=== PATIENT | male | born 1940 | race Hispanic/Latino ===

== ENCOUNTER 2018-07-11 17:46 | Emergency (ER) | payer OTHER, BC ==
[2018-07-11] MEDS ORDERED: TRAMADOL HCL 50 MG TAB ONE (19:13)
--- NOTE | 2018-07-11 19:47 | RAD REPORT ---
EXAM DESCRIPTION: RAD - Ribs Right - 07/11/2018 7:32 pm CLINICAL HISTORY: PAIN Right rib pain COMPARISON: No comparisons FINDINGS: Minimally displaced fracture of the posterior right seventh rib is noted. No additional ri b fracture seen. No underlying pneumothorax.
--- NOTE | 2018-07-11 19:47 | RAD REPORT ---
EXAM DESCRIPTION: RAD - Chest Single View - 07/11/2018 7:41 pm CLINICAL HISTORY: PAIN Chest pain. COMPARISON: No comparisons FINDINGS: Portable technique limits examination quality. The lungs are grossly clear. The heart is normal in size. Minimally displaced right lateral seventh r ib fracture.
--- NOTE | 2018-07-11 20:06 | ER ---
Nurse's Notes [facility] Name: Hayes Bran Age: 78 yrs Sex: Male : 1940 Arrival Date: 07/11/2018 Time: 17:48 Bed 24 Private MD: Jeanne Greenberg R Diagnosis: Fracture of one rib, right side Presentation: 07/11 18:13 Presenting complaint: Patient states: pt fell while in the shower, c/o right sided pain tl3 with movement, no bruising noted. Transition of care: patient was not received from another setting of care. Onset of symptoms was July 11, 2018. Risk Assessment: Do you want to hurt yourself or someone else? Patient reports no desire to harm self or others. Initial Sepsis Screen: Does the patient meet any 2 criteria? No. Patient's initial sepsis screen is negative. Does the patient have a suspected source of infection? No. Patient's initial sepsis screen is negative. Care prior to arrival: None. 18:13 Method Of Arrival: Ambulatory tl3 18:13 Acuity: STEFANIE 4 tl3 Triage Assessment: 18:15 General: Appears uncomfortable, slender, well groomed, well developed, well nourished, tl3 Behavior is calm, cooperative, appropriate for age. Pain: Complains of pain in right side. EENT: No signs and/or symptoms were reported regarding the EENT system. Neuro: Level of Consciousness is awake, alert, obeys commands, Oriented to person, place, time, situation, Appropriate for age. Cardiovascular: Patient's skin is warm and dry. Respiratory: Airway is patent Respiratory effort is even, unlabored, Respiratory pattern is regular, symmetrical. GI: No signs and/or symptoms were reported involving the gastrointestinal system. : No signs and/or symptoms were reported regarding the genitourinary system. Derm: No signs and/or symptoms reported regarding the dermatologic system. Musculoskeletal: Tenderness present in right side, back. Historical: - Home Meds: 18:15 None [Active]; tl3 - PMHx: 18:15 Cancer; tl3 - PSHx: 18:15 Appendectomy; abdominal surgery for colorectal cancer; tl3 - Immunization history:: Adult Immunizations up to date. - Social history:: Smoking status: unknown. - Ebola Screening: : No symptoms or risks identified at this time. Screenin:18 Abuse screen: Denies threats or abuse. Nutritional screening: No deficits noted. tl3 Tuberculosis screening: No symptoms or risk factors identified. Fall Risk Fall in past 12 months (25 points). Assessment: 18:18 Reassessment: No changes from previously documented assessment. tl3 19:29 Reassessment: No changes from previously documented assessment. Patient and/or family tl3 updated on plan of care and expected duration. Pain level reassessed. Patient is alert, oriented x 3, equal unlabored respirations, skin warm/dry/pink. no needs at this time, awaiting x-ray results. 20:20 Reassessment: Patient appears in no apparent distress at this time. No changes from tl3 previously documented assessment. Patient and/or family updated on plan of care and expected duration. Pain level reassessed. Patient is alert, oriented x 3, equal unlabored respirations, skin warm/dry/pink. pt being discharged home. Vital Signs: 18:15 BP 133 / 82; Pulse 75; Resp 18; Pulse Ox 97% on R/A; tl3 19:29 BP 126 / 75; Pulse 71; Resp 18; Pulse Ox 100% on R/A; tl3 20:20 BP 126 / 75; Pulse 71; Resp 18; Pulse Ox 100% on R/A; tl3 ED Course: 17:48 Patient arrived in ED. rg4 17:48 Jeanne Greenberg MD is Private Physician. rg4 18:07 Tolu Gamez NP is PHCP. pm1 18:07 Kaveh Bryant MD is Attending Physician. pm1 18:12 Meche Saha, FIORELLA is Primary Nurse. tl3 18:14 Triage completed. tl3 18:15 Arm band placed on right wrist. tl3 18:18 No provider procedures requiring assistance completed. Patient did not have IV access tl3 during this emergency room visit. 19:25 Chest Single View XRAY In Process Unspecified. EDMS 19:25 Ribs Right XRAY In Process Unspecified. EDMS 20:20 Patient has correct armband on for positive identification. Bed in low position. Call tl3 light in reach. Side rails up X 1. Pulse ox on. NIBP on. Administered Medications: 18:51 Drug: traMADol 50 mg Route: PO; tl3 19:28 Follow up: Response: No adverse reaction; Pain is decreased tl3 Outcome: 20:05 Discharge ordered by . pm1 20:20 Discharged to home via wheelchair, assisted pt to car with family member tl3 20:20 Condition: stable 20:20 Discharge instructions given to patient, family, Instructed on discharge instructions, follow up and referral plans. medication usage, Demonstrated understanding of instructions, follow-up care, medications, Prescriptions given X 2. 20:46 Patient left the ED. tl3 Signatures: Dispatcher [employer] EDMS Tolu Gamez NP SAND SIFTER pm1 Berenice Vega rg4 Meche Saha, RN RN tl3
--- NOTE | 2018-07-11 20:06 | EDPHYS ---
Physician Documentation [facility] Name: Hayes Bran Age: 78 yrs Sex: Male : 1940 Arrival Date: 07/11/2018 Time: 17:48 Bed 24 Private MD: Jeanne Greenberg R ED Physician Kaveh Bryant HPI: 07/11 18:30 This 78 yrs old Male presents to ER via Ambulatory with complaints of Fall pm1 Injury. 18:30 Details of fall: The patient fell from an upright position, while standing. Onset: The pm1 symptoms/episode began/occurred today. Associated injuries: The patient sustained right lateral lower anterior chest. Severity of symptoms: in the emergency department the symptoms are unchanged. The patient has not experienced similar symptoms in the past. The patient has not recently seen a physician. Patient was standing in the shower and he fell on the right side. Hit the right side of his rib cage on the edge of the bath tub. No head injury, headache, or neck pain. No LOC. No shortness of breath. Historical: - Home Meds: 18:15 None [Active]; tl3 - PMHx: 18:15 Cancer; tl3 - PSHx: 18:15 Appendectomy; abdominal surgery for colorectal cancer; tl3 - Immunization history:: Adult Immunizations up to date. - Social history:: Smoking status: unknown. - Ebola Screening: : No symptoms or risks identified at this time. ROS: 18:30 Constitutional: Negative for fever, chills, and weight loss, Eyes: Negative for injury, pm1 pain, redness, and discharge, ENT: Negative for injury, pain, and discharge, Neck: Negative for injury, pain, and swelling, Cardiovascular: Negative for chest pain, palpitations, and edema, Respiratory: Negative for shortness of breath, cough, wheezing, and pleuritic chest pain, Abdomen/GI: Negative for abdominal pain, nausea, vomiting, diarrhea, and constipation, Back: Negative for injury and pain, : Negative for injury, bleeding, discharge, and swelling, MS/Extremity: Negative for injury and deformity, Skin: Negative for injury, rash, and discoloration, Neuro: Negative for headache, weakness, numbness, tingling, and seizure. Exam: 18:30 Constitutional: This is a well developed, well nourished patient who is awake, alert, pm1 and in no acute distress. Head/Face: Normocephalic, atraumatic. Eyes: Pupils equal round and reactive to light, extra-ocular motions intact. Lids and lashes normal. Conjunctiva and sclera are non-icteric and not injected. Cornea within normal limits. Periorbital areas with no swelling, redness, or edema. ENT: Nares patent. No nasal discharge, no septal abnormalities noted. Tympanic membranes are normal and external auditory canals are clear. Oropharynx with no redness, swelling, or masses, exudates, or evidence of obstruction, uvula midline. Mucous membranes moist. Neck: Trachea midline, no thyromegaly or masses palpated, and no cervical lymphadenopathy. Supple, full range of motion without nuchal rigidity, or vertebral point tenderness. No Meningismus. 18:30 Cardiovascular: Regular rate and rhythm with a normal S1 and S2. No gallops, murmurs, or rubs. Normal PMI, no JVD. No pulse deficits. Respiratory: Lungs have equal breath sounds bilaterally, clear to auscultation and percussion. No rales, rhonchi or wheezes noted. No increased work of breathing, no retractions or nasal flaring. Abdomen/GI: Soft, non-tender, with normal bowel sounds. No distension or tympany. No guarding or rebound. No evidence of tenderness throughout. Back: No spinal tenderness. No costovertebral tenderness. Full range of motion. Skin: Warm, dry with normal turgor. Normal color with no rashes, no lesions, and no evidence of cellulitis. MS/ Extremity: Pulses equal, no cyanosis. Neurovascular intact. Full, normal range of motion. 18:30 Chest/axilla: Inspection: normal, Palpation: crepitus, is not appreciated, tenderness, that totally reproduces the patient's complaints, focal point to right lateral lower rib cage. 18:30 Neuro: Orientation: is normal, Motor: is normal, moves all fours, Sensation: is normal, no obvious gross deficits. Vital Signs: 18:15 BP 133 / 82; Pulse 75; Resp 18; Pulse Ox 97% on R/A; tl3 19:29 BP 126 / 75; Pulse 71; Resp 18; Pulse Ox 100% on R/A; tl3 20:20 BP 126 / 75; Pulse 71; Resp 18; Pulse Ox 100% on R/A; tl3 MDM: 18:18 Patient medically screened. pm1 20:04 Data reviewed: vital signs. Data interpreted: Pulse oximetry: on room air is 100 %. pm1 Interpretation: normal. Counseling: I had a detailed discussion with the patient and/or guardian regarding: the historical points, exam findings, and any diagnostic results supporting the discharge/admit diagnosis, radiology results, the need for outpatient follow up, to return to the emergency department if symptoms worsen or persist or if there are any questions or concerns that arise at home. 07/11 18:27 Order name: Chest Single View XRAY; Complete Time: 19:55 pm1 07/11 18:27 Order name: Ribs Right XRAY; Complete Time: 19:55 pm1 Administered Medications: 18:51 Drug: traMADol 50 mg Route: PO; tl3 19:28 Follow up: Response: No adverse reaction; Pain is decreased tl3 Disposition: 07/11/18 20:05 Discharged to Home. Impression: Fracture of one rib, right side. - Condition is Stable. - Discharge Instructions: Rib Fracture. - Prescriptions for Tramadol 50 mg Oral Tablet - take 1 tablet by ORAL route every 8 hours as needed; 20 tablet. - Medication Reconciliation Form, Thank You Letter, Prescription Opioid Use form. - Follow up: Emergency Department; When: As needed; Reason: Worsening of condition. Follow up: Private Physician; When: 2 - 3 days; Reason: Recheck today's complaints, Continuance of care, Re-evaluation by your physician. - Problem is new. - Symptoms have improved. Addendum: 07/14/2018 06:59 Co-signature as Attending Physician, Kaveh Bryant MD I agree with the assessment and k dr plan of care. Signatures: Dispatcher [employer] EDNY Kaveh Bryant MD MD kdr Marinas, Patrick, NP [employer] OPERATOR pm1 Meche Saha RN RN tl3 Corrections: (The following items were deleted from the chart) 07/11 20:46 20:05 07/11/2018 20:05 Discharged to Home. Impression: Fracture of one rib, right side. tl3 Condition is Stable. Forms are Medication Reconciliation Form, Thank You Letter, Antibiotic Education, Prescription Opioid Use. Follow up: Emergency Department; When: As needed; Reason: Worsening of condition. Follow up: Private Physician; When: 2 - 3 days; Reason: Recheck today's complaints, Continuance of care, Re-evaluation by your physician. Problem is new. Symptoms have improved. pm1
== END 2018-07-11 20:46 | disposition home or self-care (01) ==
LOC: ER 17:46
DX: S22.31XA Fracture of one rib, right side, initial encounter for closed fracture (principal); W18.2XXA Fall in (into) shower or empty bathtub, initial encounter; Y93.E1 Activity, personal bathing and showering; Z85.038 Personal history of other malignant neoplasm of large intestine
CPT/HCPCS: 71045; 99284

== ENCOUNTER 2018-10-23 21:27 | Emergency (ER) | payer OTHER, BC ==
[2018-10-23 22:34] LABS: Absolute Lymphocytes (CBC) 0.4 K/uL (0.7-4.9); Absolute Monocytes 0.7 K/uL (0.1-1.3); Basophils % 0.5 % (0-1.3); Hematocrit 37.8 % (39.6-49.0); Lymphocytes % 2.9 % (15.3-44.8); Monocytes % 4.6 % (3.3-12.3); RBC Red Blood Cell Count 4.61 M/uL (4.33-5.43)
[2018-10-23] MEDS ORDERED: CIPROFLOXACIN 400mg IV 400 MG/200 ML BAG IV ONE (22:48)
[2018-10-23] MEDS ORDERED: NA CHLORIDE 0.9% 500 ML ONE (22:48)
[2018-10-23] MEDS ORDERED: MORPHINE 4 MG/ML SYR ONE ×2 (22:48→23:37)
[2018-10-23] MEDS ORDERED: FAMOTIDINE 20 MG/2 ML VIAL IV ONE (22:48)
[2018-10-23] MEDS ORDERED: ONDANSETRON 4 MG/2 ML VIAL ONE (22:48)
[2018-10-23] MEDS ORDERED: METRONIDAZOLE 500mg IVPB 500 MG/100 ML BAG IV ONE (22:49)
[2018-10-23] MEDS ORDERED: NA CHLORIDE 0.9% 1,000 ML ONE (22:49)
[2018-10-23 22:53] LABS: Protime INR 1.84
[2018-10-23 23:03] LABS: Albumin 2.7 g/dL (3.4-5.0); Bilirubin Direct 0.2 mg/dL (0-0.2); Bilirubin Total 0.8 mg/dL (0.2-1.0); Potassium 3.1 mmol/L (3.5-5.1); Protein, Total 8.4 g/dL (6.4-8.2)
[2018-10-23 23:11] LABS: NT PRO-BNP 776 pg/mL (<450); Troponin (Emerg Dept Use Only) < 0.02 ng/mL (0.0-0.045)
[2018-10-23 23:27] LABS: Blood Morphology Comment NOT SEEN (NOT SEEN); Platelet Estimate ADEQ; Urine White Blood Cell Casts OK
[2018-10-23] MEDS ORDERED: NS KCL 20MEQ 1,000 ML IV ONE (23:34)
[2018-10-24] MEDS ORDERED: HYDROMORPHONE HCL 0.5 MG/0.5 ML INJ ONE (01:27)
[2018-10-24] MEDS ORDERED: ONDANSETRON 4 MG/2 ML VIAL ONE (01:42)
--- NOTE | 2018-10-24 01:59 | ER ---
Nurse's Notes [facility] Name: Hayes Bran Age: 78 yrs Sex: Male : 1940 Arrival Date: 10/23/2018 Time: 21:28 Bed 23 Private MD: Diagnosis: Abdominal tenderness-multiple pelvic abscesses/ neoplasms, necrotic;Cholecystitis;Hydronephrosis with ureteral stricture, not elsewhere classified;Cystitis Presentation: 10/23 21:35 Presenting complaint: Patient states: I was doing some yard work two days ago and my ed1 stomach started hurting and it is getting worse. Transition of care: patient was not received from another setting of care. Onset of symptoms was October 21, 2018. Risk Assessment: Do you want to hurt yourself or someone else? Patient reports no desire to harm self or others. Initial Sepsis Screen: Does the patient meet any 2 criteria? No. Patient's initial sepsis screen is negative. Does the patient have a suspected source of infection? No. Patient's initial sepsis screen is negative. Care prior to arrival: None. 21:35 Method Of Arrival: Wheelchair ed1 21:35 Acuity: STEFANIE 2 ed1 Triage Assessment: 21:37 General: Appears in no apparent distress. Behavior is calm, cooperative. Pain: ed1 Complains of pain in abdomen Pain currently is 10 out of 10 on a pain scale. GI: Reports vomiting. Historical: - Allergies: 21:37 No Known Allergies; ed1 - Home Meds: 21:37 None [Active]; ed1 - PMHx: 21:37 Cancer; ed1 - PSHx: 21:37 Appendectomy; abdominal surgery for colorectal cancer; ed1 - Immunization history:: Adult Immunizations up to date. - Social history:: Smoking status: Patient/guardian denies using tobacco. - Ebola Screening: : Patient negative for fever greater than or equal to 101.5 degrees Fahrenheit, and additional compatible Ebola Virus Disease symptoms Patient denies exposure to infectious person Patient denies travel to an Ebola-affected area in the 21 days before illness onset No symptoms or risks identified at this time. - Family history:: not pertinent. Screenin:45 Abuse screen: Denies threats or abuse. Denies injuries from another. Nutritional ca1 screening: No deficits noted. Tuberculosis screening: No symptoms or risk factors identified. Fall Risk None identified. Assessment: 21:45 General: Appears in no apparent distress. uncomfortable, Behavior is calm, cooperative, ca1 appropriate for age. Pain: Complains of pain in right upper quadrant and left upper quadrant Pain radiates to posterior aspect of left lateral abdomen and posterior aspect of right lateral abdomen Pain currently is 10 out of 10 on a pain scale. Quality of pain is described as sharp, Pain began today. Neuro: Level of Consciousness is awake, alert, obeys commands, Oriented to person, place, time, situation. Cardiovascular: Heart tones S1 S2 present Capillary refill < 3 seconds Patient's skin is warm and dry. Respiratory: Airway is patent Respiratory effort is even, unlabored, Respiratory pattern is regular, symmetrical, Breath sounds are clear bilaterally. GI: Abdomen is flat, non-distended, Bowel sounds present X 4 quads. Abd is soft X 4 quads Abdomen is tender to palpation in right upper quadrant and left upper quadrant Reports nausea, vomiting. : No deficits noted. No signs and/or symptoms were reported regarding the genitourinary system. EENT: No deficits noted. No signs and/or symptoms were reported regarding the EENT system. Derm: Skin is intact, is healthy with good turgor, Skin is pink, warm \T\ dry. Musculoskeletal: Circulation, motion, and sensation intact. Capillary refill < 3 seconds, Range of motion: intact in all extremities. 22:40 Reassessment: Patient appears in no apparent distress at this time. Patient and/or ca1 family updated on plan of care and expected duration. Pain level reassessed. Patient is alert, oriented x 3, equal unlabored respirations, skin warm/dry/pink. 23:32 Reassessment: Patient appears in no apparent distress at this time. Patient is alert, ca1 oriented x 3, equal unlabored respirations, skin warm/dry/pink. Pending CT scan. 10/24 00:11 Reassessment: Patient appears in no apparent distress at this time. Patient is alert, ca1 oriented x 3, equal unlabored respirations, skin warm/dry/pink. Patient states feeling better. 00:49 Reassessment: Patient appears in no apparent distress at this time. Patient is alert, ca1 oriented x 3, equal unlabored respirations, skin warm/dry/pink. Pt back from CT scan. 03:46 Reassessment: Patient and/or family updated on plan of care and expected duration. Pain bb level reassessed. Patient is alert, oriented x 3, equal unlabored respirations, skin warm/dry/pink. pt is resting quietly with no complaints, IV site intact, patent, with fluids infusing, no erythema or edema noted, awaiting transfer for higher level of care. 04:13 Reassessment: Patient is alert, oriented x 3, equal unlabored respirations, skin bb warm/dry/pink. [facility] at bedside for transfer of pt to [facility], pt's IV is intact with no erythema or edema noted, report was called to Alyson BARROS at [facility]. Vital Signs: 10/23 21:37 BP 153 / 75; Pulse 88; Resp 18; Temp 98.2(TE); Pulse Ox 98% on R/A; Weight 63.5 kg; ed1 Height 5 ft. 10 in. (177.80 cm); Pain 10/10; 22:27 BP 155 / 81; Pulse 73; Resp 17; Pulse Ox 100% on R/A; ca1 23:32 BP 168 / 78; Pulse 70; Resp 15 S; Temp 98.4(O); Pulse Ox 100% on R/A; ca1 10/24 00:11 BP 167 / 79; Pulse 71; Resp 17 S; Temp 98.1(O); Pulse Ox 100% on R/A; ca1 00:49 BP 166 / 94; Pulse 90; Resp 19 S; Temp 98.4(O); Pulse Ox 100% on R/A; ca1 02:47 BP 153 / 82; Pulse 68; Resp 18; Temp 98.8; Pulse Ox 100% on R/A; Pain 2/10; mg2 03:48 BP 179 / 90; Pulse 71; Resp 18 S; Pulse Ox 97% on R/A; bb 04:15 BP 149 / 85; Pulse 74; Resp 16 S; Temp 97.9(O); Pulse Ox 99% on R/A; bb 10/23 21:37 Body Mass Index 20.09 (63.50 kg, 177.80 cm) ed1 ED Course: 10/23 21:28 Patient arrived in ED. ds1 21:36 Triage completed. ed1 21:37 Arm band placed on. ed1 21:41 Ryan Hudson MD is Attending Physician. nidhi 21:45 Patient has correct armband on for positive identification. Placed in gown. Bed in low ca1 position. Call light in reach. Side rails up X 1. Pulse ox on. NIBP on. Warm blanket given. 21:58 Inserted saline lock: 22 gauge in right antecubital area, using aseptic technique. jb5 Blood collected. 22:06 Vashti Ng, FIORELLA is Primary Nurse. ca1 23:03 XRAY Chest (1 view) In Process Unspecified. EDMS 05 01:03 CT Abd/Pelvis - W/Contrast In Process Unspecified. EDMS 01:20 CT completed. Patient tolerated procedure well. Patient moved to CT via stretcher. Patient moved back from CT. 03:48 No provider procedures requiring assistance completed. Patient transferred, IV remains bb in place. Administered Medications: Discontinued: Cipro 400 mg 200 ml IVPB once over 60 mins Discontinued: Flagyl 500 mg 100 ml IVPB at 200 ml/hr once over 30 mins 05 22:30 Drug: NS 0.9% 500 ml Route: IV; Rate: bolus; Site: right antecubital; ca1 23:29 Follow up: IV Status: Completed infusion ca1 22:30 Drug: Zofran 4 mg Route: IVP; Site: right antecubital; ca1 23:30 Follow up: Response: No adverse reaction; Nausea is decreased ca1 22:35 Drug: Pepcid 20 mg Route: IVP; Site: right antecubital; ca1 23:30 Follow up: Response: No adverse reaction ca1 22:40 Drug: morphine 2 mg Route: IVP; Site: right antecubital; ca1 23:29 Follow up: Response: No adverse reaction; Pain is unchanged, physician notified ca1 23:00 Drug: morphine 2 mg Route: IVP; Site: right antecubital; ca1 23:30 Follow up: Response: No adverse reaction; Pain is unchanged, physician notified ca1 23:00 Drug: Flagyl 500 mg Volume: 100 ml; Route: IVPB; Rate: 200 ml/hr; Infused Over: 30 ca1 mins; Site: right antecubital; 23:35 Follow up: Response: No adverse reaction; IV Status: Completed infusion ca1 23:13 Not Given (Duplicate Order): NS 0.9% 1000 ml IV at 125 ml/hr continuous nidhi 23:28 Drug: morphine 4 mg Route: IVP; Site: right antecubital; ca1 10/24 00:03 Follow up: Response: No adverse reaction; Pain is decreased ca1 10/23 23:37 Drug: NS 0.9% with KCl 20 mEq/L 1000 ml Route: IV; Rate: 125 ml/hr; Site: right ca1 antecubital; 10/24 02:49 Follow up: IV Status: Infusion continued upon transfer mg2 01:11 Drug: Cipro 400 mg Volume: 200 ml; Route: IVPB; Infused Over: 60 mins; Site: right mg2 antecubital; 02:49 Follow up: Response: No adverse reaction; IV Status: Completed infusion mg2 01:31 Drug: Dilaudid 0.5 mg Route: IVP; Site: right antecubital; mg2 02:48 Follow up: Response: No adverse reaction; Marked relief of symptoms mg2 01:32 Drug: Zofran 4 mg Route: IVP; Site: right antecubital; mg2 02:48 Follow up: Response: No adverse reaction; Marked relief of symptoms mg2 02:17 Drug: Zosyn 3.375 grams Route: IVPB; Infused Over: 60 mins; Site: right forearm; mg2 04:15 Follow up: IV Status: Completed infusion; IV Intake: 100ml bb 02:18 Drug: Phenergan 12.5 mg Route: IVP; Site: right antecubital; mg2 02:48 Follow up: Response: No adverse reaction; Marked relief of symptoms mg2 Intake: 04:15 IV: 100ml; Total: 100ml. bb Outcome: 01:58 ER care complete, transfer ordered by MD. terrell 03:49 Instructed on the need for transfer. bb 04:49 Condition: stable bb 04:49 Transferred by ground EMS to [facility], Transfer form completed. X-rays bb sent w/ patient. Note: report called to Alyson BARROS for [facility] 04:50 Patient left the ED. bb Signatures: Dispatcher [employer] EDRyan Daly MD MD cha Hagler, Roberto Jacob, Lisa ds1 Glenda Knight RN RN bb Juana Rutherford RN RN ed1 Cathy Silva jb5 Jamarcus Enriquez RN RN mg2 Vashti Ng RN RN ca1 Corrections: (The following items were deleted from the chart) 02:50 02:47 Pulse 68bpm; Resp 18bpm; Pulse Ox 100% RA; Temp 98.8F; Pain 2/10; mg2 mg2
--- NOTE | 2018-10-24 01:59 | EDPHYS ---
Physician Documentation [facility] Name: Hayes Bran Age: 78 yrs Sex: Male : 1940 Arrival Date: 10/23/2018 Time: 21:28 Bed 23 Private MD: ED Physician Ryan Hudson HPI: 10/23 22:27 This 78 yrs old Male presents to ER via Wheelchair with complaints of nidhi Abdominal Pain. 22:27 The patient presents with abdominal pain in the upper abdomen, in the lower abdomen, nidhi abdominal distention in the upper abdomen, in the lower abdomen. Onset: The symptoms/episode began/occurred 1 day(s) ago. The symptoms do not radiate. Associated signs and symptoms: none. The symptoms are described as constant, crampy. Modifying factors: The symptoms are alleviated by nothing, the symptoms are aggravated by nothing. Severity of pain: At its worst the pain was mild in the emergency department the pain is unchanged. The patient has not experienced similar symptoms in the past. Historical: - Allergies: 21:37 No Known Allergies; ed1 - Home Meds: 21:37 None [Active]; ed1 - PMHx: 21:37 Cancer; ed1 - PSHx: 21:37 Appendectomy; abdominal surgery for colorectal cancer; ed1 - Immunization history:: Adult Immunizations up to date. - Social history:: Smoking status: Patient/guardian denies using tobacco. - Ebola Screening: : Patient negative for fever greater than or equal to 101.5 degrees Fahrenheit, and additional compatible Ebola Virus Disease symptoms Patient denies exposure to infectious person Patient denies travel to an Ebola-affected area in the 21 days before illness onset No symptoms or risks identified at this time. - Family history:: not pertinent. ROS: 22:27 Constitutional: Negative for fever, chills, and weight loss, Eyes: Negative for injury, nidhi pain, redness, and discharge, ENT: Negative for injury, pain, and discharge, Neck: Negative for injury, pain, and swelling, Cardiovascular: Negative for chest pain, palpitations, and edema, Respiratory: Negative for shortness of breath, cough, wheezing, and pleuritic chest pain, Back: Negative for injury and pain, : Negative for injury, bleeding, discharge, and swelling, MS/Extremity: Negative for injury and deformity, Skin: Negative for injury, rash, and discoloration, Neuro: Negative for headache, weakness, numbness, tingling, and seizure, Psych: Negative for depression, anxiety, suicide ideation, homicidal ideation, and hallucinations, Allergy/Immunology: Negative for hives, rash, and allergies, Endocrine: Negative for neck swelling, polydipsia, polyuria, polyphagia, and marked weight changes, Hematologic/Lymphatic: Negative for swollen nodes, abnormal bleeding, and unusual bruising. 22:27 Abdomen/GI: Positive for abdominal pain, nausea and vomiting, of the right upper quadrant, left upper quadrant, right lower quadrant and left lower quadrant. Exam: 22:27 Constitutional: This is a well developed, well nourished patient who is awake, alert, nidhi and in no acute distress. Head/Face: Normocephalic, atraumatic. Eyes: Pupils equal round and reactive to light, extra-ocular motions intact. Lids and lashes normal. Conjunctiva and sclera are non-icteric and not injected. Cornea within normal limits. Periorbital areas with no swelling, redness, or edema. ENT: Nares patent. No nasal discharge, no septal abnormalities noted. Tympanic membranes are normal and external auditory canals are clear. Oropharynx with no redness, swelling, or masses, exudates, or evidence of obstruction, uvula midline. Mucous membranes moist. Neck: Trachea midline, no thyromegaly or masses palpated, and no cervical lymphadenopathy. Supple, full range of motion without nuchal rigidity, or vertebral point tenderness. No Meningismus. Chest/axilla: Normal chest wall appearance and motion. Nontender with no deformity. No lesions are appreciated. Cardiovascular: Regular rate and rhythm with a normal S1 and S2. No gallops, murmurs, or rubs. Normal PMI, no JVD. No pulse deficits. Respiratory: Lungs have equal breath sounds bilaterally, clear to auscultation and percussion. No rales, rhonchi or wheezes noted. No increased work of breathing, no retractions or nasal flaring. Back: No spinal tenderness. No costovertebral tenderness. Full range of motion. Male : Normal genitalia with no discharge or lesions. Skin: Warm, dry with normal turgor. Normal color with no rashes, no lesions, and no evidence of cellulitis. MS/ Extremity: Pulses equal, no cyanosis. Neurovascular intact. Full, normal range of motion. Neuro: Awake and alert, GCS 15, oriented to person, place, time, and situation. Cranial nerves II-XII grossly intact. Motor strength 5/5 in all extremities. Sensory grossly intact. Cerebellar exam normal. Normal gait. Psych: Awake, alert, with orientation to person, place and time. Behavior, mood, and affect are within normal limits. 22:27 Abdomen/GI: Inspection: abdomen appears normal, Bowel sounds: normal, Palpation: moderate abdominal tenderness, in the right upper quadrant, left upper quadrant, right lower quadrant and left lower quadrant, Liver: no appreciated palpable abnormalities, Hernia: not appreciated. Vital Signs: 21:37 BP 153 / 75; Pulse 88; Resp 18; Temp 98.2(TE); Pulse Ox 98% on R/A; Weight 63.5 kg; ed1 Height 5 ft. 10 in. (177.80 cm); Pain 10/10; 22:27 BP 155 / 81; Pulse 73; Resp 17; Pulse Ox 100% on R/A; ca1 23:32 BP 168 / 78; Pulse 70; Resp 15 S; Temp 98.4(O); Pulse Ox 100% on R/A; ca1 10/24 00:11 BP 167 / 79; Pulse 71; Resp 17 S; Temp 98.1(O); Pulse Ox 100% on R/A; ca1 00:49 BP 166 / 94; Pulse 90; Resp 19 S; Temp 98.4(O); Pulse Ox 100% on R/A; ca1 02:47 BP 153 / 82; Pulse 68; Resp 18; Temp 98.8; Pulse Ox 100% on R/A; Pain 2/10; mg2 03:48 BP 179 / 90; Pulse 71; Resp 18 S; Pulse Ox 97% on R/A; bb 04:15 BP 149 / 85; Pulse 74; Resp 16 S; Temp 97.9(O); Pulse Ox 99% on R/A; bb 10/23 21:37 Body Mass Index 20.09 (63.50 kg, 177.80 cm) ed1 MDM: 10/23 21:41 Patient medically screened. [facility] 22:31 Data reviewed: vital signs, nurses notes, lab test result(s), EKG, radiologic studies, [facility] CT scan, plain films. 10/23 21:52 Order name: Basic Metabolic Panel; Complete Time: 23:11 [facility] 10/23 21:52 Order name: CBC with Diff; Complete Time: 23:59 [facility] 10/23 21:52 Order name: Creatinine for Radiology; Complete Time: 23:11 [facility] 10/23 21:52 Order name: Hepatic Function; Complete Time: 23:11 [facility] 10/23 21:52 Order name: Lipase; Complete Time: 23:11 [facility] 10/23 22:27 Order name: Magnesium; Complete Time: 23:59 [facility] 10/23 22:27 Order name: NT PRO-BNP; Complete Time: 23:59 [facility] 10/23 22:27 Order name: PT-INR; Complete Time: 23:11 [facility] 10/23 22:27 Order name: Troponin (emerg Dept Use Only); Complete Time: 23:59 [facility] 10/23 22:27 Order name: XRAY Chest (1 view) [facility] 10/23 22:27 Order name: CT Abd/Pelvis - W/Contrast [facility] 10/23 23:27 Order name: CBC Smear Scan; Complete Time: 23:59 EDMS 10/24 01:59 Order name: Urine Culture [facility] 10/24 04:38 Order name: Urine Dipstick--Ancillary (enter results) 10/23 21:52 Order name: IV Saline Lock; Complete Time: 22:14 [facility] 10/23 22:27 Order name: EKG; Complete Time: 22:28 [facility] 10/23 21:52 Order name: Labs collected and sent; Complete Time: 22:14 [facility] 10/23 22:27 Order name: Cardiac monitoring; Complete Time: 22:30 [facility] 10/23 22:27 Order name: EKG - Nurse/Tech; Complete Time: 22:58 [facility] 10/23 22:27 Order name: O2 Per Protocol; Complete Time: 22:31 [facility] 10/23 22:27 Order name: O2 Sat Monitoring; Complete Time: 22:31 [facility] 10/24 01:59 Order name: Urine Dipstick-Ancillary (obtain specimen); Complete Time: 02:48 [facility] Administered Medications: Discontinued: Cipro 400 mg 200 ml IVPB once over 60 mins Discontinued: Flagyl 500 mg 100 ml IVPB at 200 ml/hr once over 30 mins 22:30 Drug: NS 0.9% 500 ml Route: IV; Rate: bolus; Site: right antecubital; ca1 23:29 Follow up: IV Status: Completed infusion ca1 22:30 Drug: Zofran 4 mg Route: IVP; Site: right antecubital; ca1 23:30 Follow up: Response: No adverse reaction; Nausea is decreased ca1 22:35 Drug: Pepcid 20 mg Route: IVP; Site: right antecubital; ca1 23:30 Follow up: Response: No adverse reaction ca1 22:40 Drug: morphine 2 mg Route: IVP; Site: right antecubital; ca1 23:29 Follow up: Response: No adverse reaction; Pain is unchanged, physician notified ca1 23:00 Drug: morphine 2 mg Route: IVP; Site: right antecubital; ca1 23:30 Follow up: Response: No adverse reaction; Pain is unchanged, physician notified ca1 23:00 Drug: Flagyl 500 mg Volume: 100 ml; Route: IVPB; Rate: 200 ml/hr; Infused Over: 30 ca1 mins; Site: right antecubital; 23:35 Follow up: Response: No adverse reaction; IV Status: Completed infusion ca1 23:13 Not Given (Duplicate Order): NS 0.9% 1000 ml IV at 125 ml/hr continuous nidhi 23:28 Drug: morphine 4 mg Route: IVP; Site: right antecubital; ca1 10/24 00:03 Follow up: Response: No adverse reaction; Pain is decreased ca1 10/23 23:37 Drug: NS 0.9% with KCl 20 mEq/L 1000 ml Route: IV; Rate: 125 ml/hr; Site: right ca1 antecubital; 10/24 02:49 Follow up: IV Status: Infusion continued upon transfer mg2 01:11 Drug: Cipro 400 mg Volume: 200 ml; Route: IVPB; Infused Over: 60 mins; Site: right mg2 antecubital; 02:49 Follow up: Response: No adverse reaction; IV Status: Completed infusion mg2 01:31 Drug: Dilaudid 0.5 mg Route: IVP; Site: right antecubital; mg2 02:48 Follow up: Response: No adverse reaction; Marked relief of symptoms mg2 01:32 Drug: Zofran 4 mg Route: IVP; Site: right antecubital; mg2 02:48 Follow up: Response: No adverse reaction; Marked relief of symptoms mg2 02:17 Drug: Zosyn 3.375 grams Route: IVPB; Infused Over: 60 mins; Site: right forearm; mg2 04:15 Follow up: IV Status: Completed infusion; IV Intake: 100ml bb 02:18 Drug: Phenergan 12.5 mg Route: IVP; Site: right antecubital; mg2 02:48 Follow up: Response: No adverse reaction; Marked relief of symptoms mg2 Disposition: 10/24/18 01:58 Transfer ordered to [facility]. Diagnosis are Abdominal tenderness - multiple pelvic abscesses/ neoplasms, necrotic, Cholecystitis, Hydronephrosis with ureteral stricture, not elsewhere classified, Cystitis. - Reason for transfer: Higher level of care. - Accepting physician is to dr vivien montoya. - Condition is Fair. - Problem is new. - Symptoms have improved. Signatures: Dispatcher [employer] EDMS Ryan Hudson MD MD cha Ballard, Brenda RN RN bb Juana Rutherford RN RN ed1 Jamarcus Enriquez RN RN mg2 Vashti Ng RN RN ca1 Corrections: (The following items were deleted from the chart) 02:26 01:58 10/24/2018 01:[address] [facility]. Diagnosis is nidhi Abdominal tenderness - multiple pelvic abscesses/ neoplasms, necrotic; Cholecystitis; Hydronephrosis with ureteral stricture, not elsewhere classified. Reason for transfer: Higher level of care. Accepting physician is to [facility]. Condition is Fair. Problem is new. Symptoms have improved. nidhi 02:34 02:26 10/24/2018 01:[address] [facility]. Diagnosis is nidhi Abdominal tenderness - multiple pelvic abscesses/ neoplasms, necrotic; Cholecystitis; Hydronephrosis with ureteral stricture, not elsewhere classified; Cystitis. Reason for transfer: Higher level of care. Accepting physician is to [facility]. Condition is Fair. Problem is new. Symptoms have improved. nidhi 04:50 02:34 10/24/2018 01:58 Transfer ordered to [facility]. Diagnosis is bb Abdominal tenderness - multiple pelvic abscesses/ neoplasms, necrotic; Cholecystitis; Hydronephrosis with ureteral stricture, not elsewhere classified; Cystitis. Reason for transfer: Higher level of care. Accepting physician is to dr vivien montoya. Condition is Fair. Problem is new. Symptoms have improved. nidhi
[2018-10-24] MEDS ORDERED: PIPER/TAZO/NS 3.375gm 3.375 GM/100 ML BAG ONE (02:16)
[2018-10-24] MEDS ORDERED: PROMETHAZINE 25 MG/ML VIAL ONE (02:17)
[2018-10-24 05:10] LABS: Urine Blood 2+ (NEG); Urine Glucose NEGATIVE (NEG); Urine Protein 2+ (NEG); Urine pH 5.5 (5.0-7.0)
--- NOTE | 2018-10-24 08:11 | RAD REPORT ---
EXAM DESCRIPTION: RAD - Chest Single View - 10/23/2018 11:03 pm CLINICAL HISTORY: ABDOMINAL DISTENTION Chest pain. COMPARISON: Chest Single View dated 07/11/2018 FINDINGS: Portable technique limits examination quality. Mild interstitial pulmonary edema is seen. Trace left pleural effusion. The heart is mildly enlarged in size with a tortuous thoracic aorta. No displaced fractures. IMPRESSION: Mild CHF.
--- NOTE | 2018-10-24 08:28 | EKG ---
Test Date: 2018-10-23 Test Time: 22:34:47 Hydrology Technician: NEISHA MEASUREMENT RESULTS: Intervals: Rate: 72 [place]: QRSD: 84 QT: 420 QTc: 459 [place]: P: [place]: QRS: -16 T: 11 INTERPRETIVE STATEMENTS: Sinus rhythm Low voltage QRS Otherwise normal ECG No previous ECG available for comparison Electronically Signed On 10-24-18 08:27:29 CDT by Eric Fraser
--- NOTE | 2018-10-27 14:21 | RAD REPORT ---
EXAM DESCRIPTION: Abdomen Pelvis W Contrast ADDENDUM #1 ADDENDUM: THIS REPORT CONTAINS FINDINGS THAT MAY BE CRITICAL TO PATIENT'S CARE: The findings were verbally discussed via telephone conference with Ryan Hudson by Dr. Way on 10/24/2018 1:46 AM CDT. The results were acknowledged and understood. Electronically signed by: Dann Way DO 10/24/2018 1:46 AM CDT End of Addendum EXAM DESCRIPTION: CT Abdomen and Pelvis With Intravenous Contrast CLINICAL HISTORY: The patient is 78 years old and is Male; ABD PAIN TECHNIQUE: Axial computed tomography images of the abdomen and pelvis with intravenous contrast. S agittal and coronal reformatted images were created and reviewed. This CT exam was performed using one or more of the following dose reduction techniques: automated exposure control, adjustment of t he mA and/or kV according to patient size, and/or use of iterative reconstruction technique. COMPARISON: None. FINDINGS: LUNG BASES: Bibasilar atelectasis versus scarring. No focal consolidation, pleural effu santos or pneumothorax. ABDOMEN: LIVER: Hepatic cirrhosis with perihepatic ascites. GALLBLADDER AND BILE DUCTS: Marked enlargement of the gallbladder with severe pericholecystic flui d. Inflammatory changes extends around the second portion of the duodenum. The common bile duct is wi thin normal limits measuring 5 mm. PANCREAS: Unremarkable. No mass. No ductal dilation. SPLEEN: Unremarkable. No splenomegaly. ADRENALS: Unremarkable. No mass. KIDNEYS AND URETERS: Right adrenal atrophy with severe hydronephrosis, hydroureter and ureteral to rtuosity. The distal ureter is not well seen. Subcentimeter left renal cyst. STOMACH AND BOWEL: Unremarkable. No obstruction. No mucosal thickening. PELVIS: APPENDIX: Prior appendectomy. BLADDER: Thickening of the bladder wall. REPRODUCTIVE: Unremarkable as visualized. OTHER FINDINGS: Multiple likely confluence multiseptated rim-enhancing gas containing pelvic colle ctions extending in the presacral space and bilateral iliac fossa. There is anterior displacement of the rectum. ABDOMEN and PELVIS: INTRAPERITONEAL SPACE: Small amount of pelvic ascites. 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 Chronic periostitis of the bony pelvis also present. No acute fracture. No dislocation. SOFT TISSUES: Unremarkable. VASCULATURE: Unremarkable. No abdominal aortic aneurysm. LYMPH NODES: Unremarkable. No enlarged lymph nodes. IMPRESSION: 1. Marked enlargement of the gallbladder with pericholecystic fluid highly concerning for acute cholecystitis. Advanced right lower quadrant inflammatory changes concerning for gangrenous cholecystitis. 2. Multiple rim-enhancing septated collections in the pelvis with chronic osteitis of the anterior sacral margin as well as inner bony pelvis pelvis. Constellation of findings concerning for pelvic ab scess versus necrotic neoplasm with reactive osseous changes 3. Right renal atrophy with severe hydronephrosis, hydroureter and ureteral tortuosity likely due t o extrinsic compression of distal ureter 4. Circumferential thickening of the bladder wall. Correlate with urinalysis. 5. Hepatic cirrhosis and perihepatic ascites. 6. Bibasilar atelectasis and/or scarring. Electronically signed by: Dann Way DO 10/24/2018 1:39 AM CDT Due to temporary technical issues with the PACS/Fluency reporting system, reports are being signed by the in house radiologist as a courtesy to ensure prompt reporting. The interpreting radiologist is f ully responsible for the content of the report.
== END 2018-10-24 04:50 | disposition short-term general hospital (02) ==
LOC: ER 21:27
DX: N13.1 Hydronephrosis with ureteral stricture, not elsewhere classified (principal); K65.1 Peritoneal abscess; N30.90 Cystitis, unspecified without hematuria; K81.9 Cholecystitis, unspecified; Z85.038 Personal history of other malignant neoplasm of large intestine; Z85.048 Personal history of other malignant neoplasm of rectum, rectosigmoid junction, and anus
CPT/HCPCS: 96365; 96367; 96361; 96368; 93005; 87088; 85025; 87086; 80048; 36415; 83735; 85610; 80076; 87077 ×2; 87186 ×2; 81003; 84484; 83690; 83880; 74177; 71045; 96375; 99285; 96366; Q9967; J2550; J2543; J1170; J7030; J2405 ×2; J0744